=== PATIENT | male | born 1975 | race Two or more races ===

== ENCOUNTER 2023-09-13 09:02 | Emergency (ER) | payer MEDICARE, MEDICAID, SELFPAY ==
[2023-09-13 09:39] VITALS: BP 119/66; PULSE 85; RESP 16; TEMP 36.7; O2SAT 95; BMI 22.5
--- NOTE | 2023-09-13 11:27 | ED_ITS ---
HPI - General Adult General Chief complaint: Ear Problems Stated complaint: eye problem Time Seen by Provider: 09/13/23 09:48 Source: patient Mode of arrival: ambulatory Limitations: no limitations History of Present Illness HPI narrative: 48-year-old male presents to the ED for right eye redness and itchiness the past couple of days and clear discharge. Patient denies any recent trauma to the eye, right contacts, headache, nausea, vomiting, dizziness, fever, or chills. Related Data Previous Rx's ?Medication ?Instructions ?Recorded erythromycin 5 mg/gram (0.5 %) eye 0.5 inch ophthalmic (eye) QID #3.5 09/13/23 ointment grams loratadine 10 mg tablet (Claritin) 10 mg PO DAILY 10 days #10 tabs 09/13/23 Allergies Allergy/AdvReac Type Severity Reaction Status Date / Time No Known Allergies Allergy Verified 09/13/23 09:42 Review of Systems Review of Systems: Right eye redness and itchiness Yes all other systems are reviewed and are negative PMFSH Social History Social History Advance Directives: No Advance Directives Information Provided: Yes Physical Exam ED Vital Signs: Vital Signs - 24 hr 09/13/23 09:39 Temperature 98.1 F Pulse Rate 85 Respiratory Rate 16 Blood Pressure 119/66 Pulse Oximetry 95 Oxygen Delivery Method Room Air BMI result Body Mass Index 22.5 Const General: cooperative, healthy appearing, comfortable, no acute distress, well developed, alert, awake and Physically active Orientation/consciousness: oriented to person, oriented to place, oriented to time and patient oriented x3 HENMT Head: Yes normal to inspection, Yes No palpable skull fracture present, Yes normocephalic, Yes atraumatic and No abrasion Eyes Other: Right eye: positive for conjunctival erythema with clear discharge. Negative for any photophobia, hyphema, or globe tenderness on palpation. Fluorescein dye and tetracaine placed in eye. negative for corneal abrasion or corneal ulcer. Negative for signs of foreign body. Tonometry pressure of right eye 10 left eye normal Neck Neck: Yes normal visual inspection, Yes full ROM, Yes no lymphadenopathy and Yes no meningeal signs Chest Chest palpation & inspection: normal inspection of the chest and normal palpation of entire chest wall Resp Effort & Inspection: normal respiratory effort and able to speak in complete sentences Auscultation: clear to auscultation bilaterally Cardio Jugular venous distension: no JVD Heart sounds: S1 normal heart sound present GI Inspection: Yes normal to inspection Palpation (GI): Soft to palpation, not firm, nontender, no guarding and not rigid General: No CVA tenderness and Yes no CVA tenderness Back/Spine/Pelvis Back: no CVA tenderness, No CVA tenderness and No back tenderness Skin General skin exam: no rashes or lesions noted, elasticity normal and turgor normal Neuro General: oriented to person, oriented to place, oriented to time, patient oriented x3, gait normal, tone normal, moves all extremities, Normal light touch and pain sensation, no meningeal signs, no focal motor deficits, CN's II-XI intact bilaterally and normal sensation to monofilament Extrem General: Yes normal to inspection, Yes full ROM and Yes capillary refill normal Psych Appearance: grossly normal, well kempt and not disheveled Medications Administered Discontinued Medications Generic Name Dose Route Start Last Admin Trade Name Freq PRN Reason Stop Dose Admin Fluorescein Sodium 1 strip 09/13/23 10:50 09/13/23 11:40 Fluorescein Sodium Strip EYE-BOTH 09/13/23 10:51 1 strip ONCE ONE Administration Tetracaine HCl 3 drop 09/13/23 10:50 09/13/23 11:41 Tetracaine Hcl/Pf 0.5% Oph Lauren 4 Ml Drops EYE-BOTH 09/13/23 10:51 3 drop ONCE ONE Administration Medical Decision Making Medical Decision Making [facility] Narrative: 48-year-old male presents to ED for right eye irritation. Physical exam negative for corneal abrasion, corneal ulcer, globe rupture, fracture, or glaucoma. Not suspecting orbital cellulitis. Differential diagnosis allergic versus bacterial conjunctivitis. Patient will be discharged with erythromycin and Claritin oral. Visual acuity normal in both eyes Differential Diagnosis Differential Diagnoses: The differential diagnosis associated with the presentation includes ( conjunctivitis) Admission/Observation Consideration of admission/observation: Escalation of care including admission/observation considered Independent Historian Clinical information obtained from an independent historian. History obtained from or confirmed by: Other (patient) External Record Review External record reviewed: Other (prior visits) Prescription Management I considered prescription management with: Antibiotic (oinment) and Other (claritin) Discharge Plan Discharge Clinical Impression: Conjunctivitis Patient Disposition: Home, Self-Care Instructions: Conjunctivitis (ED) Additional Instructions: recommend follow-up with your primary care provider and I doctor. Symptoms due to allergic versus bacterial conjunctivitis. You will be discharged with eye ointment and oral allergic medication. Return to the ED for any change in vision, eye pain, green drainage, swelling of the eye, blindness, black her in, facial droop, paralysis of extremities, headache, nausea, vomiting, or any other concerning symptoms. Prescriptions: New erythromycin 5 mg/gram (0.5 %) ointment 0.5 inch ophthalmic (eye) QID Qty: 3.5 0RF loratadine [Claritin] 10 mg tablet 10 mg PO DAILY 10 Days Qty: 10 0RF Referrals: Michael Van [Physician] - ( Conjunctivitis) Interventions: ED Discharge Assessment Last Done: 09/13/23 11:43 Discharge Date/Time: 09/13/23 11:44 Print Language: Guamanian
[2023-09-13] MEDS: Fluorescein Sodium STRIP 1 STRIP EYE-BOTH (11:40)
[2023-09-13] MEDS: Tetracaine HCl/PF 0.5% Oph Sol 4 ML DROPS 3 DROP EYE-BOTH (11:41)
[2023-09-13 11:43] VITALS: BP 119/66; PULSE 85; RESP 18; TEMP 36.7; O2SAT 95
== END 2023-09-13 11:44 | disposition home or self-care (01) ==
PROVIDERS: Emergency Provider Student in an Organized Health Care Education/Training Program
DX: H10.9 Unspecified conjunctivitis (principal)
CPT/HCPCS: 99282; 99283

== ENCOUNTER 2023-09-17 08:43 | Emergency (ER) | payer MEDICARE, MEDICAID, SELFPAY ==
[2023-09-17 09:09] VITALS: BP 117/67; PULSE 76; RESP 18; TEMP 36.3; O2SAT 95; BMI 25.2
--- NOTE | 2023-09-17 12:28 | ED.GENADULT ---
HPI - General Adult General Chief complaint: Eye Problems Stated complaint: ? R/L Eye Infection Time Seen by Provider: 09/17/23 11:45 Source: patient Mode of arrival: ambulatory Limitations: no limitations History of Present Illness HPI narrative: 48 yo m with no significant pmhx presents with b/l eye redness and itchiness since Saturday. States he was seen here and got ointment for the eye, but nothing would come out of tube dx with conjunctivitis. He brought empty tube in with him today. He reports excess tearing and itchiness. Denies vision changes, dizziness, headache, painful eye movements, foreign body sensations, fevers, chills, uri sx, cough Related Data Previous Rx's ?Medication ?Instructions ?Recorded erythromycin 5 mg/gram (0.5 %) eye 0.5 inch ophthalmic (eye) QID #3.5 09/13/23 ointment grams loratadine 10 mg tablet (Claritin) 10 mg PO DAILY 10 days #10 tabs 09/13/23 sulfacetamide sodium 10 % eye drops 2 drp ophthalmic-Left Q4H #15 mL 09/17/23 Allergies Allergy/AdvReac Type Severity Reaction Status Date / Time No Known Allergies Allergy Verified 09/17/23 09:11 Review of Systems Review of Systems: Yes all other systems are reviewed and are negative PMFSH Past Medical History Attestation statement: The following information was validated with the patient. Source: old records reviewed and nursing notes reviewed Social History Social History Advance Directives: No Do you have a plan to hurt others: No Plan Physical Exam ED Vital Signs: Vital Signs - 24 hr 09/17/23 09:09 09/17/23 12:47 Temperature 97.4 F 97.4 F Pulse Rate 76 76 Respiratory Rate 18 18 Blood Pressure 117/67 117/67 Pulse Oximetry 95 95 Oxygen Delivery Method Room Air Room Air BMI result Body Mass Index 25.2 vss Appearance: Alert.? Oriented X3.? No acute distress.? Head: Normocephalic, atraumatic, no step-offs or deformities Eyes: Pupils equal, round and reactive to light.?B/l eye redness and lacrimation. EOM intact pain free. Neck: Normal inspection.? Neck supple.? CVS: Normal heart rate and rhythm.? Respiratory: No respiratory distress.? Skin: Skin warm and dry.? Normal skin color.? Normal skin turgor.? Extremities: No lower extremity edema.? No calf ttp. 5/5 strength to bilateral upper and lower extremities Neuro: Oriented X 3.? No motor deficit.? No sensory deficit. CN 2-12 intact Course Reevaluation(s) Reevaluation #1: Will give patient Bleph-10 drops. Advised him to continue taking his other meds. Educated patient on diagnosis and treatment plan, answered all question, patient verbalizes understanding. At this time patient will be discharged home, advised to return with new or worsening symptoms. Educated on worrisome signs and symptoms and when to return. At this time I feel comfortable discharge home. Time: 12:57 Medical Decision Making Medical Decision Making MDM Narrative: 48 yo m presents with b/l eye redness and tearing since Saturday. Got erythromycin ointment, but states it would not come out of tube. PE- benign, b/l eye redness and lacrimation Hx and PE likely bacterial conjunctivitis vs viral conjunctivitis vs allergic conjunctivitis. Unlikely periorbital cellulitis vs orbital cellulitis. Unlikely wet macular degeneration, acute closed angle glaucoma Plan- drops Differential Diagnosis Differential Diagnoses: The differential diagnosis associated with the presentation includes Hx and PE likely bacterial conjunctivitis vs viral conjunctivitis vs allergic conjunctivitis. Unlikely periorbital cellulitis vs orbital cellulitis. Unlikely wet macular degeneration, acute closed angle glaucoma Plan- drops Admission/Observation Consideration of admission/observation: Escalation of care including admission/observation considered Tests considered The following testing was considered but not selected: Extraocular movements intact and pain-free. Discharge Plan Discharge Clinical Impression: Bacterial conjunctivitis Patient Disposition: Home, Self-Care Instructions: Conjunctivitis (ED) Additional Instructions: Take your medications as prescribed. If you were prescribed antibiotics today, it is important that you take your medication to their entirety, do not skip any doses, do not finish them early. Follow-up with your primary care provider this week. Return to the emergency department with new or worsening symptoms. Such as fevers, chills, chest pain, shortness of breath, nausea, vomiting, dizziness, headache, vision changes, lethargy In case of emergency call 911 Prescriptions: New sulfacetamide sodium 10 % drops 2 drp ophthalmic-Left Q4H Qty: 15 0RF No Action erythromycin 5 mg/gram (0.5 %) ointment 0.5 inch ophthalmic (eye) QID Qty: 3.5 0RF loratadine [Claritin] 10 mg tablet 10 mg PO DAILY 10 Days Qty: 10 0RF Referrals: Physician,None [Primary Care Provider] - 2 days Stand Alone Forms: Work/School Release Interventions: ED Discharge Assessment Last Done: 09/17/23 12:47 Discharge Date/Time: 09/17/23 12:48 Print Language: Slovak
[2023-09-17 12:47] VITALS: BP 117/67; PULSE 76; RESP 18; TEMP 36.3; O2SAT 95
== END 2023-09-17 12:48 | disposition home or self-care (01) ==
PROVIDERS: Emergency Provider Emergency Medicine
DX: H10.89 Other conjunctivitis (principal)
CPT/HCPCS: 99282; 99283

== ENCOUNTER 2023-10-17 11:50 | Emergency (ER) | payer MEDICARE, MEDICAID, SELFPAY | END 2023-10-17 15:13 | disposition left against medical advice (07) | PROVIDERS: Emergency Provider Emergency Medicine | DX: Z53.21 Procedure and treatment not carried out due to patient leaving prior to being seen by health care provider (principal); J45.909 Unspecified asthma, uncomplicated ==

== ENCOUNTER 2024-06-03 15:11 | Emergency (ER) | payer MEDICARE, MEDICAID, SELFPAY ==
[2024-06-03 15:52] VITALS: BP 120/79; PULSE 76; RESP 18; TEMP 37.2; O2SAT 97; BMI 23.8
--- NOTE | 2024-06-03 15:54 | ED_ITS ---
HPI - General Adult General Chief complaint: Extremity Injury, Lower Stated complaint: Back pain, R leg pain Time Seen by Provider: 06/03/24 17:15 Source: patient, RN notes reviewed and old records reviewed Mode of arrival: ambulatory Limitations: no limitations History of Present Illness ED Provider: Hank HUGO narrative: 49-year-old male presents for evaluation of right sided hip pain and back pain. The pain started about a week ago. Denies any specific injury but the patient reports that he does do heavy lifting. His pain is worse with walking or bending over His pain radiates into the right groin He reports having had similar pains in the past that was treated with muscle relaxers Denies any abdominal pain, nausea vomiting, diarrhea. Denies any burning with urination, blood in the urine or difficulty urinating Related Data Previous Rx's ?Medication ?Instructions ?Recorded erythromycin 5 mg/gram (0.5 %) eye 0.5 inch ophthalmic (eye) QID #3.5 09/13/23 ointment grams loratadine 10 mg tablet (Claritin) 10 mg PO DAILY 10 days #10 tabs 09/13/23 sulfacetamide sodium 10 % eye drops 2 drp ophthalmic-Left Q4H #15 mL 09/17/23 cyclobenzaprine 10 mg tablet 10 mg PO TID PRN muscle spasm #20 06/03/24 tabs naproxen 500 mg tablet 500 mg PO BID PRN pain #20 tabs 06/03/24 Allergies Allergy/AdvReac Type Severity Reaction Status Date / Time No Known Allergies Allergy Verified 06/03/24 15:55 Review of Systems Constitutional: Constitutional: Denies body ache(s), Denies chills and Denies frequent falls ENT: Denies vertigo and Denies dizziness Cardiovascular: Cardiovascular: Denies chest pain and Denies chest pain at rest Respiratory: Respiratory: Denies cough Gastrointestinal: Gastrointestinal: Denies abdominal pain, Denies nausea and Denies vomiting Genitourinary: Genitourinary: Denies flank pain, Denies penile discharge, Denies scrotal swelling, Denies testicular mass and Denies testicular pain Musculoskeletal: Musculoskeletal: Denies back pain Integumentary/Breasts: Skin/Breast: Denies rash Neurologic: Denies vertigo, Denies dizziness and Denies frequent falls ON LICENSE OF [facility] Social History Social History Advance Directives: No Advance Directives Information Provided: No Do you have a plan to hurt others: No Plan Physical Exam ED Vital Signs: Vital Signs - 24 hr 06/03/24 15:52 06/03/24 17:16 Temperature 98.9 F 98.8 F Pulse Rate 76 67 Respiratory Rate 18 18 Blood Pressure 120/79 129/81 Pulse Oximetry 97 97 Oxygen Delivery Method Room Air Room Air BMI result Body Mass Index 23.8 Const General: healthy appearing, comfortable, no acute distress, alert and awake Nutritional Appearance: well nourished Orientation/consciousness: patient oriented x3 HENMT Head: Yes normocephalic and Yes atraumatic Eyes Eyelids: Yes eyelids normal Conjunctivae: conjunctivae normal Sclerae: sclerae normal Corneas: corneas normal Pupils: Equal, round and reactive pupils present EOM: EOMs intact bilaterally Neck Neck: Yes full ROM Resp Effort & Inspection: normal respiratory effort, able to speak in complete sentences and not labored GI Other: No palpable inguinal hernia Inspection: No distended Palpation (GI): Soft to palpation, not firm, nontender, no guarding and not rigid Auscultation: normoactive bowel sounds Skin General skin exam: elasticity normal Neuro General: patient oriented x3 Cranial nerves: Yes Equal, round and reactive pupils present and Yes Bilaterally intact EOM present Cognition (Neuro): normal cognition Extrem Other: Patient has tenderness to palpation of the right hip. No obvious deformity. Course Course Course Narrative: RME, this is a rapid medical exam performed by James Mckinney please refer to primary provider for complete H&P- 49-year-old male presents for evaluation of right lower back pain that radiates to his right hip, leg and groin. Denies GI or symptoms. Plan for urinalysis Medical Decision Making Medical Decision Making MDM Narrative: 49-year-old male presents for evaluation of right hip pain that radiates to his back. His pain also radiates to his groin. He has no abdominal or symptoms. He has no palpable hernia on exam, no testicular pain or swelling. Denies any concern for sexually transmitted infections. His pain is reproducible on exam, we will treat with naproxen and cyclobenzaprine. A urinalysis ordered which shows no signs of infection or hematuria Differential Diagnosis Differential Diagnoses: The differential diagnosis associated with the presentation includes Muscle strain Bursitis Osteoarthritis Radiculopathy Inguinal hernia Lab Data MDM Lab Attestation statement: I reviewed the patient's lab results. Urinalysis negative for hematuria or signs of infection Labs: Lab Results 06/03/24 Range/Units 16:33 Urine Color Dark Yellow Urine Appearance Clear Urine pH 6.0 (5.0-9.0) Ur Specific [place] 1.020 (1.005-1.025) Urine Protein Negative (Neg-Trace) mg/dL Urine Glucose (UA) Negative (Negative) mg/dL Urine Ketones Trace (Negative) mg/dL Urine Blood Negative (Negative) Urine Nitrite Negative (Negative) Ur Leukocyte Esterase Negative (Negative) Urine RBC 0-2 (0-2) /HPF Urine WBC 0-5 (0-5) /HPF Ur Squamous Epith Cells 0-2 (0-2) /HPF Urine Bacteria None Seen (None Seen) Hyaline Casts 0-2 (0-2) /LPF Discharge Plan Discharge Clinical Impression: Bursitis of right hip Patient Disposition: Home, Self-Care Instructions: Hip Bursitis (ED) Additional Instructions: Your urinalysis does not show any evidence of blood to suggest a kidney stone. Your pain is most likely related to bursitis or a muscle strain Use naproxen twice daily for pain. Use cyclobenzaprine as needed for muscle spasms This may make you drowsy, do not drink alcohol or drive after taking Prescriptions: New naproxen 500 mg tablet 500 mg PO BID PRN (Reason: pain) Qty: 20 0RF cyclobenzaprine 10 mg tablet 10 mg PO TID PRN (Reason: muscle spasm) Qty: 20 0RF No Action sulfacetamide sodium 10 % drops 2 drp ophthalmic-Left Q4H Qty: 15 0RF erythromycin 5 mg/gram (0.5 %) ointment 0.5 inch ophthalmic (eye) QID Qty: 3.5 0RF loratadine [Claritin] 10 mg tablet 10 mg PO DAILY 10 Days Qty: 10 0RF Stand Alone Forms: Work/School Release Print Language: Sudanese
[2024-06-03 16:54] LABS: Appearance Urine Clear; Color Urine Dark Yellow; Glucose Urine UA Negative (Negative); Leukocyte Esterase Urine Negative (Negative); Nitrite Urine Negative (Negative); Urine Blood Negative (Negative); Urine Ketones Trace mg/dL (Negative); Urine Protein Negative (Neg-Trace)
[2024-06-03 16:59] LABS: Bacteria Urine None Seen (None Seen); Hyaline Casts Urine 0-2 /LPF (0-2); RBC Urine 0-2 /HPF (0-2); Squamous Epithelial Cell Urine 0-2 /HPF (0-2); WBC Urine 0-5 /HPF (0-5)
[2024-06-03 17:16] VITALS: BP 129/81; PULSE 67; RESP 18; TEMP 37.1; O2SAT 97
[2024-06-03 17:22] VITALS: BP 129/81; PULSE 67; RESP 18; TEMP 37.1; O2SAT 97
== END 2024-06-03 17:23 | disposition home or self-care (01) ==
PROVIDERS: Physician Assistant; Emergency Provider Emergency Medicine; PCP Internal Medicine
DX: M70.71 Other bursitis of hip, right hip (principal)
CPT/HCPCS: 81001; 99282; 99283

== ENCOUNTER 2025-03-25 12:47 | Outpatient (AMB) | payer MEDICARE, MEDICAID, SELFPAY ==
--- NOTE | 2025-03-25 13:11 | A.OFFPC_ITS ---
Vital Signs 03/25/25 13:12 Height 5 ft 4 in Weight 137 lb BMI 23.5 BP 108/68 Blood Pressure Location Rt brachial Position Sitting Respiration 16 Pulse 81 Pulse Source Pulse Oximeter Temp 98.2 F Temp Source Oral Pulse Oximetry (%) 95 Oxygen Delivery Method Room Air Intake Visit Reasons: Establishing care with new PCP Intake Note: Pt is here today as a New Patient to est care/ request a referral for derm for cirrhosis Medical Laboratory Assistant Required: Yes Medical Laboratory Assistant Name: flavio ID # [id number] Information Interpreted: clinical only Allergies No Known Allergies Allergy (Verified 03/25/25 13:13) Medication List - Last Reconciled 03/25/25 by Jazz Perez MD albuterol sulfate 1.25 mg (3 mL) inhalation QID PRN albuterol sulfate 90 mcg/actuation (Ventolin HFA) 2 puffs inhalation Q6H PRN betamethasone, augmented 0.05 % 1 appl topical BID 10 days Breyna 160-4.5 mcg/actuation (budesonide-formoterol) 2 puffs inhalation BID NS sertraline 50 mg PO DAILY Tobacco use date assessed: 03/25/25 Dental Screening Dental Screen Date: 03/25/25 Did you have a dental visit in the last 12 months?: Yes Did you have a dental problem in the last 6 months where you did not have access to dental care?: Yes Was dental information given to patient?: Patient has dentist HPI Establishing care with new PCP HPI Details 50-year-old male, new to practice, from [place], here to establish care with a new PCP. Has depression and anxiety, previously on sertraline but has been out of his medication. Has been having frequent episodes of depression, anhedonia, difficulty sleeping poor appetite, but no suicidal ideations or thoughts of self-harm. Requests referral to a Frisian-speaking therapist Has mild intermittent asthma currently on Breyna 160-4.5 mcg. Unfortunately continues to smoke cigarettes with no desire to quit at present time. Has been complaining of recurrent itchy rash on elbows, wrist and fingers. Requesting referral to Dermatology [facility] Medical History (Updated 03/25/25 @ 13:59 by Jazz Perez MD) Psoriasis Depression with anxiety Mild intermittent asthma Surgical History (Updated 03/25/25 @ 14:00 by Jazz Perez MD) No pertinent past surgical history Family History (Updated 03/25/25 @ 14:00 by Jazz Perez MD) Mother Mental health disorder Parkinsons disease Social History (Updated 03/25/25 @ 14:04 by Jazz Perez MD) Housing: Apartment Alcohol intake: current Alcohol intake frequency: a few times a month Patient Tobacco Use Status: Current someday Tobacco user Tobacco use type: Cigarette e-Cigarette/Vaping Use: Never Used service: No Current occupational status: employed Current occupation: Works in a [employer] Current occupational exposures/hazards: Yes (Environmental toxin/dust) Cognitive needs: No Hearing needs: No Vision needs: Yes Questionnaire PHQ-9 Over the last 2 weeks, how often have you been bothered by any of the following problems? 1. Little interest or pleasure in doing things: several days 2. Feeling down, depressed, or hopeless: more than half the days 3. Trouble falling or staying asleep, or sleeping too much: nearly every day 4. Feeling tired or having little energy: more than half the days 5. Poor appetite or overeating: nearly every day 6. Feeling bad about yourself - or that you are a failure or have let yourself or your family down: several days 7. Trouble concentrating on things, such as reading the newspaper or watching television: not at all 8. Moving or speaking so slowly that other people could have noticed. Or the opposite - being so fidgety or restless that you have been moving around a lot more than usual: several days 9. Thoughts that you would be better off or of hurting yourself in some way: not at all Total score: 13 Depression Screening Interpretation: Positive Depression Screening Follow-up: Existing condition, In treatment, New Medication prescribed (Started back on sertraline) and Community Mental Health Worker F/U Depression Screening Done: Yes 53697 - PHQ-9 Billing: Yes Source: Developed by Drs. Dale Stallings, Mali Thompson, Yusuf Pressley and colleagues, with an educational jeri from [employer]. Thrive Questionnaire Date Thrive assessed: 03/25/25 I am a: Patient What is your living situation today?: I have a steady place to live Within the past 12 months, did the food you bought not last and you didn't have the money to get more?: Often true Within the past 12 months, did you worry whether your food would run out before you got money to buy more?: Often true Do you have trouble paying for medicines?: Yes Do you have trouble getting transportation to medical appointments?: No Do you have trouble paying your heating and electricity bill?: No Do you have trouble taking care of your child, family member or friend?: No Do you have trouble with day-to-day activities such as bathing, preparing meals, shopping, managing finances, etc.?: No Are you currently unemployed and looking for a job?: No Are you interested in more education?: No THRIVE Score: 2 AUDIT C Alcohol Use Questionnaire (AUDIT-C) 1. How often do you have a drink containing alcohol?: Monthly or less 2. How many drinks containing alcohol do you have on a typical day when you are drinking?: 1 or 2 Total Score: 1 Score Reviewed/Action Taken: Yes GOLDIE-7 AMB Questionnaire GOLDIE-7 Date GOLDIE - 7 assessed: 03/25/25 Feeling nervous, anxious, or on edge: 2 = More than half the days Not being able to stop or control worryin = More than half the days Worrying too much about different things: 2 = More than half the days Trouble relaxin = Not at all Being so restless that it is hard to sit still: 2 = More than half the days Becoming easily annoyed or irritable: 2 = More than half the days Feeling afraid as if something awful might happen: 1 = Several days Total GOLDIE-7 score (0-4 normal; 5-9 mild; 10-14 moderate; 15-21 severe): 11 Source: Developed by Drs. Dale Stallings, Mali Thompson, Yusuf Pressley and colleagues, with an educational jeri from [employer]. GOLDIE-7 Assessment Billing GOLDIE-7 Assessment Tool: GOLDIE-7 Assessment 48297 Review of Systems Const Denies body aches, Denies fever(s), Denies headache(s) and Denies weakness Eyes Denies change in vision ENT Denies dizziness, Denies headache(s) and Denies nasal congestion Card Denies chest pain, Denies lightheadedness, Denies palpitations and Denies dyspnea Resp Denies cough, Denies dyspnea and Denies wheezing GI Denies abdominal pain, Denies change in bowel habits and Denies heartburn Denies hematuria, Denies difficulty urinating, Denies dysuria, Denies urinary frequency and Denies urinary urgency Musc Reports no additional complaints Skin/Breast Reports as per HPI Neuro Denies dizziness, Denies headache(s) and Denies weakness Psych Reports no additional complaints and Reports as per HPI Endo Denies polydipsia, Denies polyuria and Denies palpitations Doug/Lymph Denies easy bruising Aller/Immun Denies seasonal rhinorrhea and Denies wheezing Physical exam (Primary Care) Vital Signs: Last Vital Signs Temp 98.2 F 03/25/25 13:12 Pulse 81 03/25/25 13:12 Resp 16 03/25/25 13:12 BP 108/68 03/25/25 13:12 Pulse Ox 95 03/25/25 13:12 Oxygen Delivery Method Room Air 03/25/25 13:12 BMI result Body Mass Index 23.5 Tobacco/Smoking Status: Tobacco use Status Tobacco use date assessed 03/25/25 03/25/25 13:18 Patient Tobacco Use Status Current someday Tobacco 03/25/25 14:04 Tobacco use type Cigarette 03/25/25 14:04 e-Cigarette/Vaping Use Never Used 03/25/25 14:04 PHQ-9: PHQ-9 Score PHQ-9: Total score 13 03/25/25 14:05 Depression Screening Interpretation: Positive Depression Screening Follow-up: Existing condition, In treatment, New Medication prescribed (Started back on sertraline) and Community Mental Health Worker F/U Thrive Assessment: Date of Thrive Assessment Date Thrive assessed 03/25/25 03/25/25 14:05 Const General: comfortable, no acute distress and alert Orientation/consciousness: patient oriented x3 HENMT Ears: external ears normal General nose exam: Normal external nose present Mouth: moist mucous membranes Eyes General: appearance normal, both eyes and all related structures Neck Neck: Yes full ROM, Yes no lymphadenopathy and Yes supple Resp Effort & Inspection: normal respiratory effort and able to speak in complete sentences Auscultation: clear to auscultation bilaterally Cardio Rate: regular rate Rhythm: regular rhythm Heart sounds: S1 normal heart sound present and S2 normal heart sound present GI Palpation (GI): Soft to palpation, nontender and no masses Auscultation: normal bowel sounds Back/Spine/Pelvis Back: No back tenderness Skin Other: Dry slightly scaly rash elbows, calluses in fingers in both hands General skin exam: dry skin Neuro General: patient oriented x3, gait normal, tone normal, moves all extremities, Normal light touch and pain sensation and no focal motor deficits Cranial nerves: Yes CN's II-XII intact bilaterally Cognition (Neuro): normal cognition Extrem General: Yes full ROM, Yes no joint enlargement, Yes no clubbing, cyanosis or edema and Yes no calf tenderness Psych Appearance: grossly normal and well kempt Mental Status: mental status grossly normal Speech and movement: Normal speech and movement present Affect: normal affect Coding Level of Care Code New Pt Level 4 (87686) Complex EM visit Add On G2211 Diagnoses Mild intermittent asthma without complication J45.20 Asthma complication type: uncomplicated Depression with anxiety F41.8 Psoriasis L40.9 Additional Codes GOLDIE-7 Assessment Billing - GOLDIE-7 Assessment Tool: GOLDIE-7 Assessment 63335 ([id number]) PHQ-9 - 03256 - PHQ-9 Billing: Yes ([id number]) Assessment & Plan Assessment & Plan (1) Mild intermittent asthma: Code(s): J45.20 - Mild intermittent asthma, uncomplicated Category: Medical Qualifiers: Asthma complication type: uncomplicated Qualified Code(s): J45.20 - Mild intermittent asthma, uncomplicated Plan: Stressed importance of quitting smoking, Rx sent for Breyna 160-4.5 mcg /actuation, 2 inh every 12 hours, patient and rinse mouth after use, refill prescription also given for albuterol inhaler to use as needed for episodes of bronchospasm/wheezing (2) Depression with anxiety: Code(s): F41.8 - Other specified anxiety disorders Category: Medical Plan: Prescription sent for sertraline 50 mg per tablet taken once a day, referred to a [facility] for assistance in getting sees Frisian speaking for boost and Psychiatry (3) Psoriasis: Code(s): L40.9 - Psoriasis, unspecified Category: Medical Plan: Referred to dermatology, prescription sent for betamethasone augmented cream 0.25% to apply sparingly to affected areas twice a day for no more than 10 days at a time Orders: Referrals Dermatology Referral L40.9 - Psoriasis, unspecified Medications: New albuterol sulfate 1.25 mg (3 mL) inhalation QID PRN 75 mL 1RF shortness of breath or wheezing J45.20 - Mild intermittent asthma, uncomplicated betamethasone, augmented 0.05 % 1 appl topical BID 50 grams 0RF itching 10 days L40.9 - Psoriasis, unspecified albuterol sulfate 90 mcg/actuation (Ventolin HFA) 2 puffs inhalation Q6H PRN 8.5 grams 3RF shortness of breath or wheezing J45.20 - Mild intermittent asthma, uncomplicated sertraline 50 mg PO DAILY 30 tabs 3RF F41.8 - Other specified anxiety disorders Breyna 160-4.5 mcg/actuation (budesonide-formoterol) 2 puffs inhalation BID 10.3 grams 3RF NS J45.20 - Mild intermittent asthma, uncomplicated Discontinued erythromycin Discontinued Reason: Patient Completed Course 0.5 inches ophthalmic (eye) QID 3.5 grams 0RF cyclobenzaprine Discontinued Reason: Patient no longer taking 10 mg PO TID PRN 20 tabs 0RF muscle spasm naproxen Discontinued Reason: Patient no longer taking 500 mg PO BID PRN 20 tabs 0RF pain loratadine Discontinued Reason: Patient no longer taking 10 mg PO DAILY 10 days 10 tabs 0RF sulfacetamide sodium 10% Discontinued Reason: Patient no longer taking 2 drps ophthalmic-Left Q4H 15 mL 0RF
[2025-03-25 13:12] VITALS: BP 108/68; PULSE 81; RESP 16; TEMP 36.8; O2SAT 95; BMI 23.5
== END 2025-03-25 14:09 | disposition home or self-care (01) ==
LOC: HO.HMCC 12:48
PROVIDERS: PCP Internal Medicine; Visit Provider Internal Medicine
DX: J45.20 Mild intermittent asthma, uncomplicated (principal); F41.8 Other specified anxiety disorders; L40.9 Psoriasis, unspecified

== ENCOUNTER → 2025-03-25 12:47 | Outpatient (BNVA) | payer MEDICARE, MEDICAID, SELFPAY | PROVIDERS: PCP Internal Medicine; Visit Provider Internal Medicine | DX: Z76.89 Persons encountering health services in other specified circumstances (principal); J45.20 Mild intermittent asthma, uncomplicated; F41.8 Other specified anxiety disorders; L40.9 Psoriasis, unspecified; Z13.31 Encounter for screening for depression; Z13.39 Encounter for screening examination for other mental health and behavioral disorders | CPT/HCPCS: 96127; 99202 ==